=== PATIENT | female | born 1995 | race Two or more races ===

== ENCOUNTER 2022-03-06 11:12 | Emergency (ER) | payer MEDICAID, OTHER ==
[~2022-03-06] VITALS: Ht 154.9 cm; Wt 84.7 kg
[2022-03-06 14:51] VITALS: BP 106/71
== END 2022-03-06 15:04 | disposition home or self-care (01) ==
LOC: ER 11:12
DX: S80.01XA Contusion of right knee, initial encounter (principal); M25.571 Pain in right ankle and joints of right foot; G89.29 Other chronic pain; W22.8XXA Striking against or struck by other objects, initial encounter; Y93.89 Activity, other specified; Y92.89 Other specified places as the place of occurrence of the external cause; Y99.8 Other external cause status
CPT/HCPCS: 73562; 73610